=== PATIENT | female | born 1940 | race Caucasian/White ===

== ENCOUNTER 2016-07-07 10:24 | Outpatient (CLI) | payer MEDICARE, OTHER | END 2016-07-07 10:25 | disposition home or self-care (01) | DX: M19.072 Primary osteoarthritis, left ankle and foot (principal); M79.672 Pain in left foot ==

== ENCOUNTER 2016-07-18 16:21 | Outpatient (CLI) | payer MEDICARE, OTHER | END 2016-07-18 16:22 | disposition home or self-care (01) | DX: M19.072 Primary osteoarthritis, left ankle and foot (principal) ==

== ENCOUNTER 2016-11-02 12:52 | Emergency (ER) | payer MEDICARE, OTHER ==
[2016-11-02] MEDS ORDERED: predniSONE 20 MG TABLET PO STA (13:07)
[2016-11-02] MEDS ORDERED: ALBUTEROL NEB 2.5 MG/3 ML INH STA (13:07)
[2016-11-02] MEDS ORDERED: AZITHROMYCIN 250 MG TABLET PO STA (13:07)
[2016-11-02] MEDS ORDERED: predniSONE 20 MG TABLET ONE (13:09)
[2016-11-02] MEDS ORDERED: AZITHROMYCIN 250 MG TABLET PO ONE (13:09)
== END 2016-11-02 13:45 | disposition home or self-care (01) ==
DX: J45.909 Unspecified asthma, uncomplicated (principal); I10 Essential (primary) hypertension
CPT/HCPCS: 94640; 99282; 99283; A9270; J7512

== ENCOUNTER 2017-06-24 12:03 | Outpatient (CLI) | payer MEDICARE, OTHER ==
--- NOTE | 2017-06-25 16:31 | XRAY Report ---
DATE OF SERVICE: 06/24/2017 THREE VIEW BILATERAL KNEES: 06/24/2017 CLINICAL INDICATION: Pain. COMPARISON: Right knee 05/23/2013. FINDINGS: AP, lateral, sunrise views of the bilateral knees were obtained. Right knee replacement a ppears stable. No hardware complication or acute fracture is seen. The left knee demonstrates mild osteoar thritis. No acute fracture is appreciated. No effusion is seen. IMPRESSION: Stable appearance of right knee replacement. Mild left knee osteoarthritis. No evidenc e of fracture or hardware complication. TD: 06/24/2017 19:02
== END 2017-06-24 12:04 | disposition home or self-care (01) ==
LOC: DI 12:03
PROVIDERS: ATTEND Internal Medicine
DX: M17.12 Unilateral primary osteoarthritis, left knee (principal); Z96.651 Presence of right artificial knee joint

== ENCOUNTER 2018-01-22 11:52 | Outpatient (CLI) | payer MEDICARE, OTHER ==
--- NOTE | 2018-01-22 12:23 | XRAY Report ---
Procedure Date: 01/22/2018 Accession Number: [id number] / [id number] Procedure: XR - Wrist 4 View LT CPT Code: FULL RESULT: EXAM: Wrist 4 View LT DATE: 01/22/2018 12:08 PM CLINICAL HISTORY: L WRIST PAIN COMPARISON: None. TECHNIQUE: 3 views. FINDINGS: Bones: Normal. No fractures or bone lesions. Joints: Degenerative changes about the first carpometacarpal joint, mild. Soft Tissues: Normal. No soft tissue swelling. IMPRESSION: No acute fracture or dislocation is identified. RADIA
== END 2018-01-22 11:53 | disposition home or self-care (01) ==
LOC: DI 11:52
PROVIDERS: ATTEND Internal Medicine
DX: M25.532 Pain in left wrist (principal)

== ENCOUNTER 2019-06-14 08:00 | Outpatient (CLI) | payer MEDICARE, OTHER ==
[2019-06-14 20:17] LABS: RAPID STREP SCREEN Negative (Negative)
== END 2019-06-14 23:59 | disposition home or self-care (01) ==
LOC: LAB.R 08:00
DX: J02.9 Acute pharyngitis, unspecified (principal)
CPT/HCPCS: 87070; 87430

== ENCOUNTER 2020-04-19 16:55 | Outpatient (CLI) | payer MEDICARE, OTHER | END 2020-04-19 16:56 | disposition home or self-care (01) | LOC: COV 16:55 | PROVIDERS: ATTEND Family Medicine | DX: R05 Cough (principal); R06.02 Shortness of breath; R53.83 Other fatigue; J02.9 Acute pharyngitis, unspecified; R09.81 Nasal congestion; Z20.828 Contact with and (suspected) exposure to other viral communicable diseases ==

== ENCOUNTER 2020-12-24 09:27 | Outpatient (CLI) | payer MEDICARE, OTHER ==
[2020-12-24 09:56] LABS: BASOPHILS # (AUTO) 0.1 10^3/uL (0.0-0.1); BASOPHILS % (AUTO) 0.9 %; EOSINOPHILS # (AUTO) 0.2 10^3/uL (0.0-0.7); EOSINOPHILS % (AUTO) 3.3 %; HCT - HEMATOCRIT 39.6 % (37.0-47.0); HGB - HEMOGLOBIN 13.8 g/dL (12.0-16.0); LYMPHOCYTES # (AUTO) 1.4 10^3/uL (1.5-3.5); LYMPHOCYTES % (AUTO) 26.3 %; MEAN CORPUSCULAR HEMOGLOBIN 32.8 pg (27.0-31.0); MEAN CORPUSCULAR HGB CONC 34.8 g/dL (32.0-36.0); MEAN CORPUSCULAR VOLUME 94.1 fL (81.0-99.0); MEAN PLATELET VOLUME 8.9 fL (7.9-10.8); MONOCYTES # (AUTO) 0.6 10^3/uL (0.0-1.0); MONOCYTES % (AUTO) 11.5 %; NEUTROPHILS # (AUTO) 3.1 10^3/uL (1.5-6.6); NEUTROPHILS % (AUTO) 57.5 %; PLT - PLATELET COUNT 236 10^3/uL (130-450); RED BLOOD COUNT 4.21 10^6/uL (4.20-5.40); RED CELL DISTRIBUTION WIDTH 12.4 % (12.0-15.0); WHITE BLOOD COUNT 5.5 x10^3/uL (4.8-10.8)
[2020-12-24 10:15] LABS: ALBUMIN 4.1 g/dL (3.2-5.5); ALBUMIN/GLOBULIN RATIO 1.1 (1.0-2.2); ALKALINE PHOSPHATASE 116 IU/L (42-121); ALT ALANINE AMINOTRANSFERASE 45 IU/L (10-60); AST ASPARTATE AMINOTRANSFERASE 27 IU/L (10-42); BILIRUBIN,TOTAL 0.8 mg/dL (0.2-1.0); BUN - BLOOD UREA NITROGEN 17 mg/dL (6-20); CALCIUM 9.1 mg/dL (8.5-10.3); CARBON DIOXIDE - CO2 24 mmol/L (21-32); CHLORIDE 98 mmol/L (101-111); CHOL/HDL RATIO 3.1 (<4.4); CHOLESTEROL 236 mg/dL; CREATININE 0.6 mg/dL (0.4-1.0); GFR - MDRD 97 (>89); GLUCOSE 97 mg/dL (70-100); HDL CHOLESTEROL 77 mg/dL; LDL CHOLESTEROL,CALCULATED 145 mg/dL; LDL/HDL RATIO 1.9 (<4.4); POTASSIUM 3.9 mmol/L (3.5-5.0); SODIUM 134 mmol/L (135-145); TOTAL PROTEIN 7.8 g/dL (6.7-8.2); TRIGLYCERIDES 72 mg/dL; VLDL CHOLESTEROL 14 mg/dL
[2020-12-27 09:17] LABS: ANA PATTERN Nuclear, Homogeneous; ANA SCREEN POSITIVE (NEGATIVE); ANA TITER 1:40 titer
== END 2020-12-24 09:28 | disposition home or self-care (01) ==
LOC: LAB 09:27
PROVIDERS: ATTEND Internal Medicine
DX: I10 Essential (primary) hypertension (principal); Z13.6 Encounter for screening for cardiovascular disorders; Z79.899 Other long term (current) drug therapy; J30.2 Other seasonal allergic rhinitis; R21 Rash and other nonspecific skin eruption; R76.8 Other specified abnormal immunological findings in serum; C71.9 Malignant neoplasm of brain, unspecified
CPT/HCPCS: 36415; 80053; 80061; 83721; 84443; 85025; 86038

== ENCOUNTER 2020-12-29 11:33 | Emergency (ER) | payer MEDICARE, OTHER ==
[2020-12-29 13:27] LABS: BASOPHILS # (AUTO) 0.1 10^3/uL (0.0-0.1); BASOPHILS % (AUTO) 1.1 %; EOSINOPHILS # (AUTO) 0.1 10^3/uL (0.0-0.7); EOSINOPHILS % (AUTO) 1.7 %; HCT - HEMATOCRIT 37.6 % (37.0-47.0); HGB - HEMOGLOBIN 12.9 g/dL (12.0-16.0); LYMPHOCYTES # (AUTO) 1.4 10^3/uL (1.5-3.5); LYMPHOCYTES % (AUTO) 18.9 %; MEAN CORPUSCULAR HEMOGLOBIN 32.6 pg (27.0-31.0); MEAN CORPUSCULAR HGB CONC 34.3 g/dL (32.0-36.0); MEAN CORPUSCULAR VOLUME 94.9 fL (81.0-99.0); MEAN PLATELET VOLUME 9.7 fL (7.9-10.8); MONOCYTES # (AUTO) 0.5 10^3/uL (0.0-1.0); MONOCYTES % (AUTO) 7.2 %; NEUTROPHILS # (AUTO) 5.3 10^3/uL (1.5-6.6); NEUTROPHILS % (AUTO) 70.7 %; PLT - PLATELET COUNT 236 10^3/uL (130-450); RED BLOOD COUNT 3.96 10^6/uL (4.20-5.40); RED CELL DISTRIBUTION WIDTH 12.1 % (12.0-15.0); WHITE BLOOD COUNT 7.5 x10^3/uL (4.8-10.8)
[2020-12-29 13:39] LABS: ALBUMIN 3.9 g/dL (3.2-5.5); ALBUMIN/GLOBULIN RATIO 1.3 (1.0-2.2); BILIRUBIN,TOTAL 0.8 mg/dL (0.2-1.0); CALCIUM 9.2 mg/dL (8.5-10.3); CREATININE 0.6 mg/dL (0.4-1.0); POTASSIUM 4.3 mmol/L (3.5-5.0)
[2020-12-29 13:56] LABS: BILIRUBIN,URINE NEGATIVE (NEGATIVE); GLUCOSE, URINE (UA) NEGATIVE (NEGATIVE); KETONES,URINE (UA) NEGATIVE (NEGATIVE); LEUKOCYTE ESTERASE, URINE NEGATIVE (NEGATIVE); NITRITE,URINE NEGATIVE (NEGATIVE); OCCULT BLOOD,URINE NEGATIVE (NEGATIVE); PROTEIN,URINE NEGATIVE (NEGATIVE); UROBILINOGEN,URINE 0.2 (NORMAL) E.U./dL (NORMAL)
[2020-12-29 14:03] LABS: CLARITY,URINE CLEAR (CLEAR)
[2020-12-29] MEDS ORDERED: DEXAMETHASONE 10 MG/ML VIAL PO STA (14:47)
[2020-12-29] MEDS ORDERED: LIDOCAINE 1% 2 ML VIAL MC ONE (14:47)
[2020-12-29] MEDS ORDERED: CHERRY SYRUP 10 ML UDC PO ONE (14:47)
[2020-12-29] MEDS ORDERED: cefTRIAXone 1 GM VIAL IM STA (14:47)
--- NOTE | 2020-12-29 14:49 | ED Physician Documentation ---
PD HPI HEENT - Stated complaint Stated Complaint: WEAKNESS/SORE THROAT - Chief complaint Chief Complaint: Heent - History obtained from History obtained from: Patient, Family - History of Present Illness Timing - onset: How many weeks ago (1) Timing - duration: Weeks (1) Timing - details: Gradual onset, Still present Location: Mouth Improves: Medication Associated symptoms: Swollen nodes, Facial swelling. No: Fever, Congestion, Rhinorrhea, Trismus, Headache, Cough Similar symptoms before: Has not had sx before Recently seen: Clinic - Additional information Additional information: 80-year-old female complains of chronic xerostomia and she has developed a swelling under the right side of her jaw 2 weeks ago. She went to her dentist and had x-rays done without evidence of infection. She has been in to see her primary care doctor and she has been put on some dicloxacillin. She states that she took several doses of us felt that this made her mouth even drier attendant she felt quite odd for a while after taking it and she has discontinued taking it. She did not have any change in the size of the mass. She has had undulation in the size of the mass which has been diagnosed as a salivary gland and she does not have much in the way of pain associated with this. Review of Systems Constitutional: denies: Fever Eyes: denies: Decreased vision Ears: denies: Ear pain Nose: denies: Congestion Throat: denies: Sore throat Cardiac: denies: Chest pain / pressure, Palpitations Respiratory: denies: Dyspnea, Cough GI: reports: Nausea (transient), Diarrhea (2 days ago resolved). denies: Abdominal Pain, Vomiting, Constipation : denies: Dysuria, Frequency Skin: denies: Rash Musculoskeletal: denies: Neck pain, Back pain, Extremity pain Neurologic: denies: Generalized weakness, Focal weakness, Numbness PD PAST MEDICAL HISTORY - Past Medical History Past Medical History: Yes Cardiovascular: Hypertension Respiratory: Asthma - Past Surgical History Past Surgical History: Yes Ortho: Knee replacement - Present Medications Home Medications: Ambulatory Orders Medication Instructions Recorded Confirmed Hydrochlorothiazide 40 mg PO DAILY 05/23/13 02/07/16 Valsartan [Diovan] 80 mg PO DAILY 05/23/13 02/07/16 Albuterol Sulfate [Albuterol 2 puffs IH Q4HR PRN #1 hfa.aer.ad 11/14/14 02/07/16 Sulfate Hfa] Fluticasone 44 Mcg [Flovent] 1 puffs INH BID 02/07/16 02/07/16 Montelukast [Singulair] 1 tab PO DAILY 02/07/16 02/07/16 Albuterol 2.5 mg INH Q4H PRN #30 neb 11/02/16 Albuterol Sulfate [Proventil Hfa 1 - 2 puffs IH Q4H PRN #1 11/02/16 Inhaler] hfa.aer.ad Azithromycin [Zithromax] 250 mg PO DAILY #4 tablet 11/02/16 Fluticasone/Salmeterol [Advair 1 each IH BID #1 disk.w.dev 11/02/16 500-50 Diskus] Montelukast [Singulair] 10 mg PO QPM #30 tablet 11/02/16 predniSONE [Deltasone] 60 mg PO DAILY 5 Days tablet 11/02/16 Amox/Clav 875/125 [Augmentin 1 tablet PO Q12H 10 Days #20 tablet 12/29/20 875/125 Tab] - Allergies Allergies/Adverse Reactions: Allergies Allergy/AdvReac Type Severity Reaction Status Date / Time No Known Drug Allergies Allergy Verified 12/29/20 11:53 - Social History Does the pt smoke?: No Smoking Status: Never smoker Does the pt drink ETOH?: Yes Does the pt have substance abuse?: No - Immunizations Immunizations are current?: Yes - POLST Patient has POLST: No PD ED PE NORMAL - Vitals Vital signs reviewed: Yes (hypertensive ) - General General: Alert and oriented X 3, No acute distress, Well developed/nourished - HEENT HEENT: Atraumatic, PERRL, EOMI, Other (There is a swollen salivary gland and there the right submandibular area. It is nontender to palpation it is firm it does appear that continued pressure reduces the size of this somewhat.) - Neck Neck: Supple, no meningeal sign, No bony TTP - Cardiac Cardiac: RRR, No murmur - Respiratory Respiratory: No respiratory distress, Clear bilaterally - Abdomen Abdomen: Soft, Non tender - Back Back: No CVA TTP, No spinal TTP - Derm Derm: Normal color, Warm and dry, No rash - Extremities Extremities: No deformity, Normal ROM s pain, No edema - Neuro Neuro: Alert and oriented X 3, crown buffer 2-12 intact, No motor deficit, No sensory deficit, Normal speech Eye Opening: Spontaneous Motor: Obeys Commands Verbal: Oriented GCS Score: 15 - Psych Psych: Normal mood, Normal affect Results - Vitals Vitals: Vital Signs - 24 hr 12/29/20 12/29/20 12/29/20 11:48 13:31 15:00 Temperature 37.1 C 37.1 C 37.0 C Heart Rate 84 84 82 Respiratory 16 16 16 Rate Blood Pressure 177/71 H 177/71 H 160/72 H O2 Saturation 98 98 100 Oxygen O2 Source Room air - Labs Labs: Laboratory Tests 12/29/20 12/29/20 12/29/20 12:00 13:23 13:23 WBC 7.5 RBC 3.96 L Hgb 12.9 Hct 37.6 MCV 94.9 MCH 32.6 H MCHC 34.3 RDW 12.1 Plt Count 236 MPV 9.7 Neut # (Auto) 5.3 Lymph # (Auto) 1.4 L [place] # (Auto) 0.5 Eos # (Auto) 0.1 Baso # (Auto) 0.1 Absolute Nucleated RBC 0.00 Nucleated RBC % 0.0 Sodium 133 L Potassium 4.3 Chloride 98 L Carbon Dioxide 27 Anion Gap 8.0 BUN 18 Creatinine 0.6 Estimated GFR (MDRD) 97 Glucose 94 Calcium 9.2 Total Bilirubin 0.8 AST 26 ALT 32 Alkaline Phosphatase 87 Total Protein 7.0 Albumin 3.9 Globulin 3.1 Albumin/Globulin Ratio 1.3 Lipase 50 Urine Color YELLOW Urine Clarity CLEAR Urine pH 7.0 Ur Specific [place] 1.010 Urine Protein NEGATIVE Urine Glucose (UA) NEGATIVE Urine Ketones NEGATIVE Urine Occult Blood NEGATIVE Urine Nitrite NEGATIVE Urine Bilirubin NEGATIVE Urine Urobilinogen 0.2 (NORMAL) Ur Leukocyte Esterase NEGATIVE Ur Microscopic Review NOT INDICATED Urine Culture Comments NOT INDICATED Procedures - IVC sono (time) 1445 Bedside IVC sono: IVC measures (cm) (1.63), Euvolemia PD MEDICAL DECISION MAKING - ED course Complexity details: reviewed old records, reviewed results, re-evaluated patient, considered differential, d/w patient ED course: 80-year-old female with a history of seasonal allergic rhinitis is developed a swelling under her right jaw this appears to be a salivary gland and she has not had improvement with use of dicloxacillin. She has been into see the dentist there is no evidence of dental infection. Here in the emergency department I have provided IM Rocephin and a dose of dexamethasone we will place a lemon wedge under the patient's tongue and attempt to get the gland to release.She will have follow-up with ENT in the coming week. Please return to the ER. Departure - Departure Disposition: 01 Home, Self Care Clinical Impression: Salivary gland enlargement Condition: Stable Instructions: ED Sublingual Gland Obstruction Follow-Up: Shanda Cuevas MD [Primary Care Provider] - [facility] [Provider Group] Prescriptions: Amox/Clav 875/125 [Augmentin 875/125 Tab] 1 tablet PO Q12H 10 Days #20 tablet
[2020-12-29 15:13] VITALS: BP 160/72
== END 2020-12-29 15:39 | disposition home or self-care (01) ==
LOC: ED 11:33
DX: K11.1 Hypertrophy of salivary gland (principal)
CPT/HCPCS: 36415; 80053; 81003; 83690; 85025; 96372; 99283; 99284; A9270; 81001; 87086

== ENCOUNTER 2021-01-12 08:00 | Outpatient (CLI) | payer MEDICARE, OTHER ==
[2021-01-13 12:29] LABS: H. PYLORIS ANTIGEN STL NEGATIVE (Negative)
== END 2021-01-12 23:59 | disposition home or self-care (01) ==
LOC: LAB.R 08:00
PROVIDERS: ATTEND Internal Medicine
DX: K52.1 Toxic gastroenteritis and colitis (principal); K29.00 Acute gastritis without bleeding
CPT/HCPCS: 81599; 83630; 87045; 87177; 87209; 87329; 87338; 87427; 87449; 87493

== ENCOUNTER → 2021-01-13 | Outpatient (CLI) | payer MEDICARE, OTHER ==
[2021-01-13 12:29] LABS: H. PYLORIS ANTIGEN STL NEGATIVE (Negative)
== END ==
LOC: LAB.R 08:00
PROVIDERS: ATTEND Internal Medicine
DX: K52.1 Toxic gastroenteritis and colitis (principal); K29.00 Acute gastritis without bleeding
CPT/HCPCS: 83630; 87338; 87493

== ENCOUNTER 2022-01-23 08:10 | Outpatient (CLI) | payer MEDICARE, OTHER ==
--- NOTE | 2022-01-23 10:29 | XRAY Report ---
PROCEDURE: Lumbar Spine View INDICATIONS: LOW BACK PAIN TECHNIQUE: 2 views of the lumbar spine were acquired. COMPARISON: None. FINDINGS: Bones: 5 [id number]-ytxiato vertebrae are present. 9 mm of anterolisthesis of L4 on L5. Moderate multilevel spondylosis, with disc space height loss, osteophyte formation, and facet arthrop athy. There is trace leftward spinal curvature. Soft tissues: Overlying bowel gas pattern is normal. No suspicious soft tissue calcifications. IMPRESSION: Moderate multilevel spondylosis. 9 mm of L4 on L5 anterolisthesis. Reviewed by: Anish Devries MD on 01/23/2022 10:28 AM PDT Approved by: Anish Devries MD on 01/23/2022 10:28 AM PDT Station ID: [id number]
== END 2022-01-23 08:11 | disposition home or self-care (01) ==
LOC: DI 08:10
PROVIDERS: ATTEND Internal Medicine
DX: M47.816 Spondylosis without myelopathy or radiculopathy, lumbar region (principal); M43.16 Spondylolisthesis, lumbar region

== ENCOUNTER 2022-04-10 08:00 | Outpatient (CLI) | payer MEDICARE, OTHER ==
[2022-04-10 16:06] LABS: BASOPHILS # (AUTO) 0.1 10^3/uL (0.0-0.1); BASOPHILS % (AUTO) 0.9 %; EOSINOPHILS # (AUTO) 0.3 10^3/uL (0.0-0.7); EOSINOPHILS % (AUTO) 3.7 %; HCT - HEMATOCRIT 40.6 % (37.0-47.0); HGB - HEMOGLOBIN 13.9 g/dL (12.0-16.0); LYMPHOCYTES # (AUTO) 1.6 10^3/uL (1.5-3.5); LYMPHOCYTES % (AUTO) 23.2 %; MEAN CORPUSCULAR HEMOGLOBIN 32.3 pg (27.0-31.0); MEAN CORPUSCULAR HGB CONC 34.2 g/dL (32.0-36.0); MEAN CORPUSCULAR VOLUME 94.2 fL (81.0-99.0); MEAN PLATELET VOLUME 12.5 fL (7.9-10.8); MONOCYTES # (AUTO) 0.6 10^3/uL (0.0-1.0); MONOCYTES % (AUTO) 9.2 %; NEUTROPHILS # (AUTO) 4.2 10^3/uL (1.5-6.6); NEUTROPHILS % (AUTO) 62.7 %; PLT - PLATELET COUNT 192 10^3/uL (130-450); RED BLOOD COUNT 4.31 10^6/uL (4.20-5.40); RED CELL DISTRIBUTION WIDTH 12.4 % (12.0-15.0); WHITE BLOOD COUNT 6.7 x10^3/uL (4.8-10.8)
[2022-04-10 16:22] LABS: ALBUMIN/GLOBULIN RATIO 1.1 (1.0-2.2); ALKALINE PHOSPHATASE 70 IU/L (42-121); ALT ALANINE AMINOTRANSFERASE 25 IU/L (10-60); AST ASPARTATE AMINOTRANSFERASE 24 IU/L (10-42); BUN - BLOOD UREA NITROGEN 16 mg/dL (6-20); CALCIUM 9.5 mg/dL (8.5-10.3); CARBON DIOXIDE - CO2 26 mmol/L (21-32); CHLORIDE 99 mmol/L (101-111); CHOL/HDL RATIO 2.7 (<4.4); CHOLESTEROL 228 mg/dL; CREATININE 0.7 mg/dL (0.4-1.0); GFR - MDRD 81 (>89); GLUCOSE 85 mg/dL (70-100); HDL CHOLESTEROL 86 mg/dL; LDL CHOLESTEROL,CALCULATED 129 mg/dL; LDL/HDL RATIO 1.5 (<4.4); POTASSIUM 4.1 mmol/L (3.5-5.0); SODIUM 134 mmol/L (135-145); TOTAL PROTEIN 7.5 g/dL (6.7-8.2); TRIGLYCERIDES 65 mg/dL; VLDL CHOLESTEROL 13 mg/dL
[2022-04-10 20:46] LABS: ESTIMATED AVERAGE GLUCOSE 105 mg/dL (70-100); HEMOGLOBIN A1c% 5.3 % (4.27-6.07)
== END 2022-04-10 23:59 | disposition home or self-care (01) ==
LOC: LAB.R 08:00
PROVIDERS: ATTEND Internal Medicine
DX: Z00.00 Encounter for general adult medical examination without abnormal findings (principal); U07.1 COVID-19; M19.90 Unspecified osteoarthritis, unspecified site; J45.909 Unspecified asthma, uncomplicated; Z79.899 Other long term (current) drug therapy; Z83.3 Family history of diabetes mellitus
CPT/HCPCS: 80053; 80061; 83036; 83721; 84443; 85025

== ENCOUNTER 2022-04-18 11:30 | Outpatient (CLI) | payer MEDICARE, OTHER ==
[2022-04-19 18:07] LABS: ANTI-DNA (DS) AB QN <1 IU/mL (0-9); CENTROMERE B ANTIBODIES <0.2 AI (0.0-0.9); CHROMATIN ANTIBODIES <0.2 AI (0.0-0.9); JO-1 AB <0.2 AI (0.0-0.9); RIBOSOMAL P ANTIBODIES <0.2 AI (0.0-0.9); RNP ANTIBODIES <0.2 AI (0.0-0.9); SCLERODERMA-70 ANTIBODIES <0.2 AI (0.0-0.9); SJOGREN'S ANTI-SS-A <0.2 AI (0.0-0.9); SJOGREN'S ANTI-SS-B <0.2 AI (0.0-0.9); SMITH ANTIBODIES <0.2 AI (0.0-0.9); SMITH/RNP ANTIBODIES <0.2 AI (0.0-0.9)
== END 2022-04-18 23:59 | disposition home or self-care (01) ==
LOC: LAB.R 11:30
PROVIDERS: ATTEND Internal Medicine
DX: R21 Rash and other nonspecific skin eruption (principal); R76.8 Other specified abnormal immunological findings in serum
CPT/HCPCS: 83516; 86225; 86235

== ENCOUNTER 2022-04-28 14:00 | Outpatient (CLI) | payer MEDICARE, OTHER | END 2022-04-28 14:01 | disposition home or self-care (01) | LOC: LAB 14:00 | PROVIDERS: ATTEND Internal Medicine | DX: R21 Rash and other nonspecific skin eruption (principal); R76.8 Other specified abnormal immunological findings in serum | CPT/HCPCS: 81599; 86038 ==

== ENCOUNTER 2022-10-17 11:15 | Outpatient (CLI) | payer MEDICARE, OTHER ==
--- NOTE | 2022-10-17 14:05 | XRAY Report ---
PROCEDURE: Chest 2 View X-Ray INDICATIONS: ACUTE COUGH TECHNIQUE: 2 views of the chest were acquired. COMPARISON: 11/14/2014. FINDINGS: Surgical changes and devices: None. Lungs and pleura: No pleural effusions or pneumothorax. Lungs are clear. Mediastinum: Mediastinal contours appear normal. Heart size is normal. Bones and chest wall: No suspicious bony lesions. Overlying soft tissues appear unremarkable. IMPRESSION: No acute cardiopulmonary process. Reviewed by: Devyn Trevino MD on 10/17/2022 2:04 PM PDT Approved by: Devyn Trevino MD on 10/17/2022 2:04 PM PDT Station ID: [id number]
== END 2022-10-17 11:16 | disposition home or self-care (01) ==
LOC: DI 11:15
PROVIDERS: ATTEND Internal Medicine
DX: R05.1 Acute cough (principal)

== ENCOUNTER 2022-10-21 11:32 | Emergency (ER) | payer MEDICARE, OTHER ==
[2022-10-21 12:03] LABS: BASOPHILS # (AUTO) 0.1 10^3/uL (0.0-0.1); BASOPHILS % (AUTO) 0.8 %; EOSINOPHILS # (AUTO) 0.2 10^3/uL (0.0-0.7); EOSINOPHILS % (AUTO) 2.4 %; HCT - HEMATOCRIT 36.5 % (37.0-47.0); HGB - HEMOGLOBIN 12.6 g/dL (12.0-16.0); LYMPHOCYTES # (AUTO) 0.9 10^3/uL (1.5-3.5); LYMPHOCYTES % (AUTO) 12.1 %; MEAN CORPUSCULAR HEMOGLOBIN 32.2 pg (27.0-31.0); MEAN CORPUSCULAR HGB CONC 34.5 g/dL (32.0-36.0); MEAN CORPUSCULAR VOLUME 93.4 fL (81.0-99.0); MEAN PLATELET VOLUME 9.3 fL (7.9-10.8); MONOCYTES # (AUTO) 0.8 10^3/uL (0.0-1.0); MONOCYTES % (AUTO) 10.7 %; NEUTROPHILS # (AUTO) 5.5 10^3/uL (1.5-6.6); NEUTROPHILS % (AUTO) 73.9 %; PLT - PLATELET COUNT 215 10^3/uL (130-450); RED BLOOD COUNT 3.91 10^6/uL (4.20-5.40); RED CELL DISTRIBUTION WIDTH 12.6 % (12.0-15.0); WHITE BLOOD COUNT 7.4 x10^3/uL (4.8-10.8)
[2022-10-21 12:16] LABS: ALBUMIN 3.4 g/dL (3.2-5.5); ALBUMIN/GLOBULIN RATIO 0.9 (1.0-2.2); BILIRUBIN,TOTAL 0.7 mg/dL (0.2-1.0); CALCIUM 8.7 mg/dL (8.5-10.3); CREATININE 0.6 mg/dL (0.4-1.0); POTASSIUM 3.9 mmol/L (3.5-5.0)
--- NOTE | 2022-10-21 12:24 | ED Physician Documentation ---
PD HPI DYSPNEA - Stated complaint Stated Complaint: SOA/FATIGUE - Chief complaint Chief Complaint: Resp - History obtained from History obtained from: Patient - History of Present Illness Timing - onset: How many weeks ago (2) Timing - duration: Weeks (2) Timing - details: Gradual onset, Still present Inciting event(s): URI (cough and feeling of dyspnea, though no fevers nor sputum production nor hemoptysis.) Associated symptoms: Cough, Wheezing, Chest pain / discomfort (tightness). No: Fever, Hemoptysis, Palpitations, Bilateral edema Similar symptoms before: Diagnosis (she states gets some seasonal allergies/cough and wheezing commonly.) Review of Systems Constitutional: denies: Fever, Chills Nose: reports: Congestion Throat: denies: Sore throat Cardiac: denies: Palpitations, Pedal edema, Calf pain Respiratory: reports: Dyspnea, Cough, Wheezing GI: denies: Abdominal Pain PD PAST MEDICAL HISTORY - Past Medical History Cardiovascular: Hypertension Respiratory: Asthma - Past Surgical History Past Surgical History: Yes Ortho: Knee replacement - Present Medications Home Medications: Ambulatory Orders Medication Instructions Recorded Confirmed Hydrochlorothiazide 25 mg PO DAILY 05/23/13 10/21/22 Valsartan [Diovan] 160 mg PO DAILY 05/23/13 10/21/22 Albuterol Sulf [Ventolin Hfa 1 - 2 puffs INH Q4HR PRN #1 each 10/21/22 Inhaler] Benzonatate [Tessalon] 100 mg PO TID PRN #20 cap 10/21/22 Cetirizine [ZyrTEC] 10 mg PO DAILY #20 tablet 10/21/22 Fluticasone Propion/Salmeterol 1 each IH BID 30 Days #1 each 10/21/22 [Fluticasone-Salmeterol 250-50] dexAMETHasone [Decadron] 4 mg PO DAILY #5 tablet 10/21/22 - Allergies Allergies/Adverse Reactions: Allergies Allergy/AdvReac Type Severity Reaction Status Date / Time No Known Drug Allergies Allergy Verified 10/21/22 11:42 - Social History Does the pt smoke?: No Smoking Status: Never smoker Does the pt drink ETOH?: Yes Does the pt have substance abuse?: No - Immunizations Immunizations are current?: Yes - POLST Patient has POLST: No PD ED PE NORMAL - Vitals Vital signs reviewed: Yes - General General: Alert and oriented X 3, No acute distress, Well developed/nourished - Cardiac Cardiac: RRR, No murmur - Respiratory Respiratory: No respiratory distress, Clear bilaterally, Other (no chestwall tenderness. ) - Abdomen Abdomen: Soft, Non tender - Derm Derm: Normal color, Warm and dry - Extremities Extremities: No edema, No calf tenderness / cord - Neuro Neuro: Alert and oriented X 3, No motor deficit, Normal speech Results - Vitals Vitals: Vital Signs - 24 hr 10/21/22 10/21/22 10/21/22 11:37 12:37 13:22 Temperature 36.8 C Heart Rate 95 84 80 Respiratory 20 19 18 Rate Blood Pressure 161/79 H 169/84 H O2 Saturation 96 92 Oxygen O2 Source Room air - EKG (time done) 12:04 EKG releavant findings:: EKG personally interpreted by author of this note. Relevant findings are: Rate: Rate (enter#) (88) Rhythm: NSR [place]: Normal Intervals: Normal [place] QRS: Normal Ischemia: Normal ST segments. No: ST elevation c/w ischemia, ST depression - Labs Labs: Laboratory Tests 10/21/22 10/21/22 10/21/22 11:59 11:59 11:59 WBC 7.4 RBC 3.91 L Hgb 12.6 Hct 36.5 L MCV 93.4 MCH 32.2 H MCHC 34.5 RDW 12.6 Plt Count 215 MPV 9.3 Neut # (Auto) 5.5 Lymph # (Auto) 0.9 L [place] # (Auto) 0.8 Eos # (Auto) 0.2 Baso # (Auto) 0.1 Absolute Nucleated RBC 0.00 Nucleated RBC % 0.0 Sodium 132 L Potassium 3.9 Chloride 101 Carbon Dioxide 21 Anion Gap 10.0 BUN 11 Creatinine 0.6 Estimated GFR (MDRD) 96 Glucose 105 H Calcium 8.7 Total Bilirubin 0.7 AST 32 ALT 28 Alkaline Phosphatase 94 B-Natriuretic Peptide 132 H Total Protein 7.0 Albumin 3.4 Globulin 3.6 Albumin/Globulin Ratio 0.9 L Lipase 56 H - Rads (name of study) chest xray Relevant Findings:: Prelim report reviewed (mild interstitial prominence bilaterally, consider CHF vs pneumonia), EMP independent interpretation of test, See rad report PD Medical Decision Making - ED course Complexity details: reviewed results (bilateral interstitial edema could be c/w pneumonia. ECG and BNP are normal. Does not seem CHF. ), considered differential (has congestion, cough, wheezing/dyspnea. History of seasonal allergies and "bronchial asthma".), d/w patient Reviewed Lab Results: she has had congestion and cough with dyspnea, feeling of wheezing. No fevers nor sputum production. Has been ongoing for 2-3 weeks. I feel the CXR represents viral or inflammatory process and not a focal pneumonia. Can treat with ALbuterol, short course steroids orally follow with 1 month Advair generic, cetirizine and tessalon. Departure - Departure Disposition: Home, Self Care Clinical Impression: Cough, Dyspnea Condition: Stable Record reviewed to determine appropriate education?: Yes Instructions: ED Bronchitis Asthmatic Follow-Up: Shanda Cuevas MD [Primary Care Provider] - Prescriptions: Albuterol Sulf [Ventolin Hfa Inhaler] 1 - 2 puffs INH Q4HR PRN #1 each PRN Reason: Shortness Of Air/Wheezing dexAMETHasone [Decadron] 4 mg PO DAILY #5 tablet Fluticasone Propion/Salmeterol [Fluticasone-Salmeterol 250-50] 1 each IH BID 30 Days #1 each Benzonatate [Tessalon] 100 mg PO TID PRN #20 cap PRN Reason: Cough Cetirizine [ZyrTEC] 10 mg PO DAILY #20 tablet Comments: Your chest x-ray is clear without any signs of pneumonia nor fluid in the lungs. Your EKG is normal as well. Basic blood tests of blood count and kidney function electrolytes are normal. We did do a blood test to look for signs of over pressuring of the heart called BNP and this was normal as well. This along with your clear sounds and no leg swelling would suggest no signs of heart failure. At this point I presume you are trouble breathing and cough related to bronchial irritation. It may be a viral illness initially with persistent cough. Sometimes environmental factors can cause irritation as well. At this point I would suggest cetirizine/Zyrtec antihistamine allergy medicine daily for the few weeks. Use Decadron steroid daily for the next several days and then start Advair discus twice daily for the next month. Use the albuterol inhaler 2 puffs 3-4 times daily over the next several days to week fairly regularly to help with your breathing and cough. Then revert to just as needed for wheezing and cough. Doing a couple of puffs before activity/exercise can be useful as well. Add benzonatate if needed for cough. Stay well-hydrated otherwise. Follow-up with your primary care if not improving well over the next week or so. I sent your prescriptions to the [facility]. Discharge Date/Time: 10/21/22 13:31
[2022-10-21 12:38] VITALS: BP 169/84
--- OUTSIDE RECORDS SUMMARY | 2022-10-21 12:53 | EXTERNAL MEDICAL SUMMARY RPT | Continuity of Care Document ---
:1940 Author Organization [facility] Address [address] [place] [address] Phone Allergies No information. Encounters No information. Functional Status No information. Immunizations No information. Medications No information. Problems date description facility 2022-08-25 10:28 Radiculopathy, lumbar region [facility] Procedures No information. Results/Labs test date author facility value unit interpret ation Result panel 1 (unknown) (no (unknown) (unknown) (no value) (units (unk nown) date) unknown) (unknown) (no (unknown) (unknown) (Modic type I (units ( unknown) date) changes). unknown) Moderate generalized disc bulge is seen. There is a (unknown) (no (unknown) (unknown) 08/25/22 (units (unkno wn) date) unknown) (unknown) (no (unknown) (unknown) [address] [place] [address] (units (unknown) date) unknown) (unknown) (no (unknown) (unknown) 8:18. (units (unkno wn) date) unknown) (unknown) (no (unknown) (unknown) : [id number] (units (u nknown) date) unknown) (unknown) (no (unknown) (unknown) Accession (units (unkn own) date) Number: unknown) [id number] (unknown) (no (unknown) (unknown) Age/Sex: 82 / F (units (unknown) date) Date of Service: unknown) (unknown) (no (unknown) (unknown) Alignment and (units ( unknown) date) Curvature: Mild unknown) levoconvex scoliotic curvature is noted. (unknown) (no (unknown) (unknown) ALLYSSA Robles (units ( unknown) date) [id number] unknown) (unknown) (no (unknown) (unknown) Approved by: (units (u nknown) date) Jeff Leija, maisha Serrano on 08/25/2022 at 13:13 (unknown) (no (unknown) (unknown) Bone Marrow: (units (u nknown) date) Marrow is of unknown) normal overall signal. Scattered foci are seen, (unknown) (no (unknown) (unknown) COMPARISON: [facility] (units (unknown) date) Outside Film, CR, unknown) XR LUMBAR SPINE 2 OR 3 VIEWS, 01/23/2022, (unknown) (no (unknown) (unknown) : 1940 (units (unknown) date) Acct:[id number] unknown) (unknown) (no (unknown) (unknown) Dictated by: (units (u nknown) date) Jeff Leija, unknown) Zach on 08/25/2022 at 12:47 (unknown) (no (unknown) (unknown) FINDINGS: (units (unkn own) date) unknown) (unknown) (no (unknown) (unknown) IMPRESSION: (units (un known) date) Multiple levels unknown) of lumbar spine degenerative change are seen, (unknown) (no (unknown) (unknown) INDICATIONS: (units (u nknown) date) RADICULOPATHY, unknown) LUMBAR REGION (unknown) (no (unknown) (unknown) Image quality: (units (unknown) date) This examination unknown) is limited by involuntary motion artifact. (unknown) (no (unknown) (unknown) [facility] (units (unknown) date) unknown) (unknown) (no (unknown) (unknown) L1-L2: Moderate (units (unknown) date) loss of disc unknown) height is seen. Loss of disc signal is seen. (unknown) (no (unknown) (unknown) L2-L3: The disc (units (unknown) date) height is unknown) well-preserved. Loss of disc signal is seen at this (unknown) (no (unknown) (unknown) L3-L4: Moderate (units (unknown) date) loss of disc unknown) height is seen. Loss of disc signal is seen. (unknown) (no (unknown) (unknown) L4-L5: At least (units (unknown) date) moderate loss of unknown) disc height and disc signal can be seen. (unknown) (no (unknown) (unknown) L5-S1: Mild loss (units (unknown) date) of disc height is unknown) seen. Loss of disc signal is seen. Mild to (unknown) (no (unknown) (unknown) Loc: MRI (units (unkno wn) date) unknown) (unknown) (no (unknown) (unknown) Magnetic (units (unkno wn) date) Resonance Report unknown) (unknown) (no (unknown) (unknown) Mild facet joint (units (unknown) date) hypertrophy is unknown) seen. Moderate bilateral neural foraminal (unknown) (no (unknown) (unknown) Minimal (units (unkno wn) date) unknown) (unknown) (no (unknown) (unknown) Moderate disc (units ( unknown) date) unknown) (unknown) (no (unknown) (unknown) Moderate (units (unkno wn) date) generalized disc unknown) bulge is seen. There is a superimposed central disc (unknown) (no (unknown) (unknown) Moderate (units (unkno wn) date) unknown) (unknown) (no (unknown) (unknown) Noncontrast (units (un known) date) sagittal T1 spin unknown) echo and T2 fast echo, sagittal STIR, and T2 fast (unknown) (no (unknown) (unknown) Ordering (units (unkno wn) date) Provider: unknown) Pam Roberts MD (unknown) (no (unknown) (unknown) PROCEDURE: MR (units ( unknown) date) LUMBAR SPINE WO unknown) CON (unknown) (no (unknown) (unknown) Paraspinous Soft (units (unknown) date) Tissues: No unknown) paravertebral masses. (unknown) (no (unknown) (unknown) Patient: (units (unkno wn) date) CasanovaDania unknown) J MR# (unknown) (no (unknown) (unknown) Procedure: MR (units ( unknown) date) lumbar spine wo unknown) con (unknown) (no (unknown) (unknown) Reactive (units (unkno wn) date) unknown) (unknown) (no (unknown) (unknown) Signed (units (unkno wn) date) unknown) (unknown) (no (unknown) (unknown) Spinal Cord: (units (u nknown) date) Conus medullaris unknown) terminates at the L1 level. Visualized cord (unknown) (no (unknown) (unknown) T12-L1: Mild (units (u nknown) date) loss of disc unknown) height is seen. Loss of disc signal is seen. Mild (unknown) (no (unknown) (unknown) TECHNIQUE: (units (unk nown) date) unknown) (unknown) (no (unknown) (unknown) There is at (units (un known) date) least moderate unknown) right-sided and moderate to severe left-sided neural (unknown) (no (unknown) (unknown) and (units (unkno wn) date) unknown) (unknown) (no (unknown) (unknown) as on series 6, (units (unknown) date) image 22. unknown) (unknown) (no (unknown) (unknown) as on series 6, (units (unknown) date) image 26. unknown) (unknown) (no (unknown) (unknown) benign vertebral (units (unknown) date) body hemangiomas. unknown) No acute vertebral body compression (unknown) (no (unknown) (unknown) bilateral neural (units (unknown) date) foraminal unknown) narrowing seen, with an associated a degree of (unknown) (no (unknown) (unknown) bulge is seen, (units (unknown) date) with a unknown) central/right disc extrusion, with superior migration of (unknown) (no (unknown) (unknown) can be seen, (units (u nknown) date) right worse than unknown) left. Moderate central canal narrowing is seen. (unknown) (no (unknown) (unknown) central canal (units ( unknown) date) narrowing is unknown) seen. (unknown) (no (unknown) (unknown) central disc (units (u nknown) date) protrusion. unknown) Moderate facet joint hypertrophy is seen. There is (unknown) (no (unknown) (unknown) changes). (units (unkn own) date) Moderate disc unknown) bulge is seen, which is eccentric to the right. Mild (unknown) (no (unknown) (unknown) compression seen (units (unknown) date) upon the exiting unknown) nerve roots. Severe central canal narrowing (unknown) (no (unknown) (unknown) compression (units (un known) date) unknown) (unknown) (no (unknown) (unknown) degree of (units (unkn own) date) unknown) (unknown) (no (unknown) (unknown) demonstrates (units (u nknown) date) unknown) (unknown) (no (unknown) (unknown) disc bulge is (units ( unknown) date) seen, which is unknown) eccentric the left. Mild facet joint hypertrophy (unknown) (no (unknown) (unknown) disc bulge is (units ( unknown) date) seen. No unknown) significant neural foraminal narrowing can be seen (unknown) (no (unknown) (unknown) edema (units (unkno wn) date) unknown) (unknown) (no (unknown) (unknown) foraminal (units (unkn own) date) unknown) (unknown) (no (unknown) (unknown) fractures. (units (unk nown) date) unknown) (unknown) (no (unknown) (unknown) generalized (units (un known) date) unknown) (unknown) (no (unknown) (unknown) hyperintense on (units (unknown) date) T1-weighted and unknown) T2-weighted imaging, which are most consistent (unknown) (no (unknown) (unknown) hyperintense on (units (unknown) date) T2 weighted unknown) imaging, which is most consistent with edema (Modic (unknown) (no (unknown) (unknown) imaging and (units (un known) date) hyperintense on unknown) T2 weighted imaging, which is most consistent with (unknown) (no (unknown) (unknown) is seen, (units (unkno wn) date) unknown) (unknown) (no (unknown) (unknown) is seen. (units (unkno wn) date) unknown) (unknown) (no (unknown) (unknown) left-sided (units (unk nown) date) neural foraminal unknown) narrowing. Mild central canal narrowing is seen. (unknown) (no (unknown) (unknown) level. (units (unkno wn) date) unknown) (unknown) (no (unknown) (unknown) marrow endplate (units (unknown) date) changes are seen unknown) posteriorly, which are hypointense on T1 (unknown) (no (unknown) (unknown) marrow endplate (units (unknown) date) changes are seen unknown) which are hypointense on T1-weighted imaging (unknown) (no (unknown) (unknown) material. (units (unkn own) date) Moderate to unknown) prominent facet hypertrophy is seen. There is moderate (unknown) (no (unknown) (unknown) may be (units (unkno wn) date) performed. unknown) (unknown) (no (unknown) (unknown) minimal (units (unkno wn) date) unknown) (unknown) (no (unknown) (unknown) moderate facet (units (unknown) date) hypertrophy can unknown) be seen. There is moderate right-sided and (unknown) (no (unknown) (unknown) moderate (units (unkno wn) date) unknown) (unknown) (no (unknown) (unknown) narrowing (units (unkn own) date) unknown) (unknown) (no (unknown) (unknown) narrowing. There (units (unknown) date) is a degree of unknown) compression seen upon the exiting nerve roots. (unknown) (no (unknown) (unknown) normal signal (units ( unknown) date) and size. unknown) (unknown) (no (unknown) (unknown) overall worst at (units (unknown) date) the L3-L4 and unknown) L4-L5 levels. (unknown) (no (unknown) (unknown) protrusion. (units (un known) date) unknown) (unknown) (no (unknown) (unknown) seen upon the (units ( unknown) date) exiting nerve unknown) roots. Moderate to severe central canal narrowing (unknown) (no (unknown) (unknown) spin echo (units (unkn own) date) unknown) (unknown) (no (unknown) (unknown) superimposed (units (u nknown) date) unknown) (unknown) (no (unknown) (unknown) the disc (units (unkno wn) date) unknown) (unknown) (no (unknown) (unknown) through the (units (un known) date) lumbar spine. In unknown) cases with scoliosis, additional coronal T2 fast (unknown) (no (unknown) (unknown) to severe (units (unkn own) date) bilateral neural unknown) foraminal narrowing seen, with an associated a (unknown) (no (unknown) (unknown) to severe (units (unkn own) date) unknown) (unknown) (no (unknown) (unknown) to (units (unkno wn) date) unknown) (unknown) (no (unknown) (unknown) type I (units (unkno wn) date) unknown) (unknown) (no (unknown) (unknown) weighted (units (unkno wn) date) unknown) (unknown) (no (unknown) (unknown) which are (units (unkn own) date) unknown) (unknown) (no (unknown) (unknown) with (units (unkno wn) date) unknown) Social History No information. Vital Signs No information.
[2022-10-21] MEDS ORDERED: ALBUTEROL 1 PUFF INH STA (12:54)
[2022-10-21] MEDS ORDERED: CETIRIZINE 10 MG TABLET PO STA (12:54)
[2022-10-21] MEDS ORDERED: DEXAMETHASONE 10 MG/ML VIAL PO STA (12:54)
[2022-10-21] MEDS ORDERED: CHERRY SYRUP 10 ML UDC PO ONE (12:54)
--- NOTE | 2022-10-21 13:06 | XRAY Report ---
PROCEDURE: Chest 1 View X-Ray INDICATIONS: dyspnea TECHNIQUE: One view of the chest was acquired. COMPARISON: None. FINDINGS: Surgical changes and devices: None. Lungs and pleura: No pleural effusions or pneumothorax. No lung consolidation. Bilateral lung inters titial prominence. Mediastinum: Mediastinal contours appear normal. Heart size is normal. Bones and chest wall: No suspicious bony lesions. Overlying soft tissues appear unremarkable. IMPRESSION: Bilateral interstitial prominence which could represent pulmonary edema or interstitial pneumonia. Reviewed by: Afshan Harris MD, PhD on 10/21/2022 1:05 PM PDT Approved by: Afshan Harris MD, PhD on 10/21/2022 1:05 PM PDT Station ID: [id number]
== END 2022-10-21 13:31 | disposition home or self-care (01) ==
LOC: ED 11:32
DX: R05.9 Cough, unspecified (principal); R06.00 Dyspnea, unspecified
CPT/HCPCS: 36415; 71045; 80053; 83690; 83880; 85025; 93005; 94640; 99284; A9270

== ENCOUNTER 2023-03-09 17:26 | Outpatient (CLI) | payer MEDICARE, OTHER ==
--- NOTE | 2023-03-09 19:45 | Ultrasound Report ---
PROCEDURE: Duplex Ext Veins Left INDICATIONS: L LEG PX,EDEMA TECHNIQUE: Real-time imaging, as well as color and pulse Doppler interrogation, were performed of the lower extr emity deep veins from the inguinal ligament to the popliteal fossa. Attempted visualization of the ca lf veins was performed. COMPARISON: None. FINDINGS: The deep veins are normally compressible, and free of intraluminal thrombus. Color and pu lse Doppler demonstrate normal phasic intraluminal flow. There is normal augmentation response to di stal compression maneuver. 6 Gooden cyst measuring 2.4 x 2.1 x 2.1 cm. Question a hematoma in the area of pain around the medial aspect of the lower calf measuring 4.8 x 2. 6 x 3.8 cm. IMPRESSION: 1. No deep venous thrombosis of the visualized lower extremity. 2. A Gooden's cyst. 3. Suspect a hematoma in the area of interest. Recommend ultrasound follow-up to ensure resolution. A lternatively, CT or MRI can be obtained for follow-up. Reviewed by: Carol Bowling MD on 03/09/2023 7:44 PM PDT Approved by: Carol Bowling MD on 03/09/2023 7:44 PM PDT Station ID: [id number]
== END 2023-03-09 17:27 | disposition home or self-care (01) ==
LOC: DI 17:26
PROVIDERS: ATTEND Internal Medicine
DX: M71.22 Synovial cyst of popliteal space [Baker], left knee (principal)

== ENCOUNTER 2023-03-28 13:49 | Outpatient (CLI) | payer MEDICARE, OTHER | END 2023-03-28 23:59 | disposition EMS.NT | LOC: EMS 13:49 | DX: R09.89 Other specified symptoms and signs involving the circulatory and respiratory systems (principal) ==

== ENCOUNTER 2023-04-23 13:00 | Outpatient (CLI) | payer MEDICARE, OTHER ==
--- NOTE | 2023-04-23 16:19 | Ultrasound Report ---
PROCEDURE: Duplex Ext Veins Left INDICATIONS: HEMATOMA TECHNIQUE: Real-time imaging, as well as color and pulse Doppler interrogation, were performed of the lower extr emity deep veins from the inguinal ligament to the popliteal fossa. Attempted visualization of the ca lf veins was performed. COMPARISON: None. FINDINGS: The deep veins are normally compressible, and free of intraluminal thrombus. Color and pu lse Doppler demonstrate normal phasic intraluminal flow. There is normal augmentation response to di stal compression maneuver. No hematoma visualized. IMPRESSION: No deep venous thrombosis of the visualized lower extremity. Reviewed by: Justin Condon on 04/23/2023 4:18 PM PDT Approved by: Justin Condon on 04/23/2023 4:18 PM PDT Station ID: [id number]
== END 2023-04-23 13:01 | disposition home or self-care (01) ==
LOC: DI 13:00
PROVIDERS: ATTEND Internal Medicine
DX: R60.9 Edema, unspecified (principal)

== ENCOUNTER 2023-10-22 08:42 | Outpatient (CLI) | payer MEDICARE, OTHER ==
--- NOTE | 2023-10-22 13:28 | XRAY Report ---
PROCEDURE: Thoracic Spine 2V INDICATIONS: BACK AND NECK PAIN TECHNIQUE: 2 views of the thoracic spine were acquired. COMPARISON: None. FINDINGS: Evaluation of the upper thoracic vertebral bodies on lateral view is limited. Bones: No fractures or dislocations. No suspicious bony lesions. 12 pairs of ribs are noted, and a ppear intact where visualized. Mild multilevel degenerative changes of the spine with osteophytosis and disc height loss. Slight S-shaped curvature of the thoracolumbar spine with dextroconvex curvatur e of the thoracic spine and levoconvex curvature of the lumbar spine. Soft tissues: No paravertebral stripe thickening. Visualized lungs are clear. IMPRESSION: Evaluation of the upper thoracic vertebral bodies on lateral view is limited. 1.No acute bony abnormality. 2.Mild multilevel degenerative changes of the spine. Reviewed by: Sheyla Marin MD on 10/22/2023 1:27 PM PDT Approved by: Sheyla Marin MD on 10/22/2023 1:27 PM PDT Station ID: [id number]
--- NOTE | 2023-10-22 13:41 | XRAY Report ---
PROCEDURE: Cervical Spine 2-3V INDICATIONS: NECK AND BACK PAIN TECHNIQUE: 4 view(s) of the cervical spine were acquired. COMPARISON: None. FINDINGS: Bones: No fractures or dislocations to the T1 level. The lateral masses of C1 appear intact on the odontoid view. Draining of the normal cervical lordosis. Marked multilevel degenerative changes with osteophytosis, disc height loss and facet arthropathy except for the C2-C3 level where the degenerati ve changes are mild to moderate. No suspicious bony lesions. Soft tissues: No prevertebral soft tissue swelling. Visualized lung apices are clear. Aortic arch i s calcified, and thickening atherosclerosis. IMPRESSION: 1.No displaced fracture or traumatic subluxation. 2.Straightening of the normal cervical lordosis with marked multilevel degenerative changes. Reviewed by: Sheyla Marin MD on 10/22/2023 1:39 PM PDT Approved by: Sheyla Marin MD on 10/22/2023 1:39 PM PDT Station ID: [id number]
== END 2023-10-22 08:43 | disposition home or self-care (01) ==
LOC: DI 08:42
PROVIDERS: ATTEND Internal Medicine
DX: M47.812 Spondylosis without myelopathy or radiculopathy, cervical region (principal); M47.814 Spondylosis without myelopathy or radiculopathy, thoracic region

== ENCOUNTER 2024-02-25 07:36 | Outpatient (CLI) | payer MEDICARE, OTHER ==
[2024-02-25 07:47] LABS: BASOPHILS # (AUTO) 0.1 10^3/uL (0.0-0.1); BASOPHILS % (AUTO) 1.2 %; EOSINOPHILS # (AUTO) 0.3 10^3/uL (0.0-0.7); EOSINOPHILS % (AUTO) 4.5 %; HCT - HEMATOCRIT 39.9 % (37.0-47.0); HGB - HEMOGLOBIN 13.6 g/dL (12.0-16.0); LYMPHOCYTES # (AUTO) 1.9 10^3/uL (1.5-3.5); LYMPHOCYTES % (AUTO) 31.1 %; MEAN CORPUSCULAR HGB CONC 34.1 g/dL (32.0-36.0); MEAN CORPUSCULAR VOLUME 96.8 fL (81.0-99.0); MEAN PLATELET VOLUME 10.1 fL (7.9-10.8); MONOCYTES # (AUTO) 0.6 10^3/uL (0.0-1.0); MONOCYTES % (AUTO) 9.1 %; NEUTROPHILS # (AUTO) 3.3 10^3/uL (1.5-6.6); NEUTROPHILS % (AUTO) 53.8 %; PLT - PLATELET COUNT 207 10^3/uL (130-450); RED BLOOD COUNT 4.12 10^6/uL (4.20-5.40); RED CELL DISTRIBUTION WIDTH 12.5 % (12.0-15.0)
[2024-02-25 08:05] LABS: ALBUMIN/GLOBULIN RATIO 1.4 (1.0-2.2); ALKALINE PHOSPHATASE 78 IU/L (42-121); ALT ALANINE AMINOTRANSFERASE 27 IU/L (10-60); AST ASPARTATE AMINOTRANSFERASE 24 IU/L (10-42); BILIRUBIN,TOTAL 0.6 mg/dL (0.2-1.0); BUN - BLOOD UREA NITROGEN 13 mg/dL (6-20); CALCIUM 9.2 mg/dL (8.5-10.3); CARBON DIOXIDE - CO2 27 mmol/L (21-32); CHLORIDE 100 mmol/L (101-111); CHOL/HDL RATIO 2.3 (<4.4); CHOLESTEROL 225 mg/dL; CREATININE 0.7 mg/dL (0.6-1.3); GFR - MDRD 80 (>89); GLUCOSE 89 mg/dL (74-104); HDL CHOLESTEROL 96 mg/dL; LDL CHOLESTEROL,CALCULATED 111 mg/dL; LDL/HDL RATIO 1.2 (<4.4); SODIUM 133 mmol/L (135-145); TOTAL PROTEIN 6.9 g/dL (6.4-8.9); TRIGLYCERIDES 89 mg/dL; VLDL CHOLESTEROL 18 mg/dL
[2024-02-25 08:20] LABS: THYROID STIMULATING HORMONE 2.32 uIU/mL (0.34-5.60)
[2024-02-25 11:31] LABS: ESTIMATED AVERAGE GLUCOSE 94 mg/dL (70-100); HEMOGLOBIN A1c% 4.9 % (4.27-6.07)
== END 2024-02-25 07:37 | disposition home or self-care (01) ==
LOC: LAB 07:36
PROVIDERS: ATTEND Internal Medicine
DX: J45.909 Unspecified asthma, uncomplicated (principal); Z83.3 Family history of diabetes mellitus; I10 Essential (primary) hypertension; M54.50 Low back pain, unspecified; M19.90 Unspecified osteoarthritis, unspecified site; Z86.16 Personal history of COVID-19
CPT/HCPCS: 36415; 80053; 80061; 83036; 83721; 84443; 85025